=== PATIENT | female | born 1970 | race Two or more races ===

== ENCOUNTER 2022-12-08 12:36 | Emergency (ER) | payer OTHER ==
[~2022-12-08] VITALS: Ht 157.5 cm; Wt 71.7 kg
[2022-12-08] MEDS ORDERED: COZAAR100 MG PO (12:49)
[2022-12-08] MEDS ORDERED: PROZAC20 MG PO (12:50)
[2022-12-08] MEDS ORDERED: AMITRIPTYLINE H25 MG PO (12:50)
[2022-12-08] MEDS ORDERED: FARXIGA10 MG PO (12:51)
[2022-12-08] MEDS ORDERED: GLIMEPIRIDE2 MG (12:51)
[2022-12-08] MEDS ORDERED: PRAVASTATIN SOD20 MG PO (12:51)
[2022-12-08 17:54] LABS: HEMATOCRIT 42.6 % (36.0-45.00); MEAN CELL VOLUME 85.8 fL (80.00-100.00); MEAN CORPUSCULAR HEMOGLOBIN 28.3 pg (27.00-32.0); MEAN CORPUSCULAR HGB CONC 32.9 g/dl (32.0-36.0); PLATELET COUNT 174 K/uL (150-450); RED BLOOD COUNT 4.97 M/uL (4.00-6.00); RED CELL DISTRIBUTION WIDTH 13.6 % (11.5-14.5)
[2022-12-08] MEDS ORDERED: DIABETIC TUSSI118 M3 PO (18:28)
[2022-12-08] MEDS ORDERED: OSEL75CA PO (18:28)
== END 2022-12-08 18:48 | disposition home or self-care (01) ==
LOC: ER 12:36
PROVIDERS: Nurse Practitioner Family
DX: J10.1 Influenza due to other identified influenza virus with other respiratory manifestations (principal); R07.89 Other chest pain; E11.9 Type 2 diabetes mellitus without complications; Z79.84 Long term (current) use of oral hypoglycemic drugs; I10 Essential (primary) hypertension; Z20.822 Contact with and (suspected) exposure to COVID-19
CPT/HCPCS: 36415; 93005; 96372; 99284; J1885